=== PATIENT | male | born 1965 | race American Indian/Alaskan Native ===

== ENCOUNTER 2021-10-20 13:23 | Emergency (ER) | payer SELFPAY ==
[2021-10-20 14:44] VITALS: BP 162/79
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
== END 2021-10-20 18:52 | disposition home or self-care (01) ==
LOC: ED 13:23
DX: S01.511A Laceration without foreign body of lip, initial encounter (principal); R42 Dizziness and giddiness; F07.81 Postconcussional syndrome; W22.8XXA Striking against or struck by other objects, initial encounter; Y93.89 Activity, other specified; Y92.89 Other specified places as the place of occurrence of the external cause; Y99.8 Other external cause status
CPT/HCPCS: 70450; 99283